=== PATIENT | female | born 1935 | race Caucasian/White ===

== ENCOUNTER → 2021-07-20 | Outpatient (CLI) | payer MEDICARE, OTHER ==
[~2021-07-20] MED LIST: ATIVAN0.5 MG PO; ELIQUIS2.5 MG PO; LANOXIN125 MCG PO; OMEPRAZOLE40 MG PO; PRAVACHOL40 MG PO; SYNTHROID 50 M50 MCG PO; TOPROL XL25 MG PO; VISTARIL25 MG PO
== END ==
LOC: HEART 5 11:30
DX: I48.91 Unspecified atrial fibrillation (principal); R06.02 Shortness of breath; Z95.0 Presence of cardiac pacemaker
CPT/HCPCS: 93306